=== PATIENT | male | born 1970 | race Caucasian/White ===

== ENCOUNTER 2017-07-08 16:39 | Emergency (ER) | payer OTHER ==
[~2017-07-08] VITALS: Ht 182.9 cm; Wt 121.0 kg
[2017-07-08 17:28] LABS: HEMATOCRIT 45.6 % (38.0-50.0); HEMOGLOBIN 16.4 G/DL (12.5-16.6); MCH 28.9 PG (29.0-34.0); MCV 80.3 FL (86-99); RBC DIS.WIDTH-CV 13.1 % (11.8-14.6); RBC DIS.WIDTH-SD 37.4 % (39-53); RED BLOOD COUNT 5.68 M/uL (4.00-5.50); WHITE BLOOD COUNT 11.5 K/uL (4.1-10.2)
[2017-07-08 17:37] LABS: ALBUMIN 4.4 g/dL (3.2-4.8); CHLORIDE 103 mEq/L (99-109); SODIUM 137 mEq/L (136-147)
[2017-07-08 17:40] LABS: D-DIMER ELISA < 150.00 ng/mLDDU (<230); GLUCOSE 126 mg/dL (70-99); TOTAL PROTEIN 7.7 g/dL (6.4-8.3)
[2017-07-08 17:42] LABS: TOTAL BILIRUBIN 1.2 mg/dL (0.0-1.0)
[2017-07-08 17:43] LABS: ALKALINE PHOSPHATASE 67 IU/L (3-129)
[2017-07-08 17:44] LABS: CREATININE 0.8 mg/dL (0.6-1.3); GFR ESTIMATE (CALCULATED) > 59 mL/min/ (58.99-99999)
[2017-07-08 17:45] LABS: AST (GOT) 23 IU/L (2-34); UREA NITROGEN (BUN) 15 mg/dL (9-23)
[2017-07-08 17:47] LABS: ALT (GPT) 40 IU/L (3-49)
[2017-07-08 17:49] LABS: TROP-I INTERPRETATION NEGATIVE; TROPONIN-I 0.02 ng/mL (0.0-0.30)
[2017-07-08 18:13] LABS: PLAT.SUFFICIENCY ADEQUATE; PLATELET COUNT 244 K/uL (156-360)
[2017-07-08 18:48] LABS: THYROTROPIN (TSH) 1.8 MIU/L (0.4-5.5)
[2017-07-08 19:51] LABS: APPEARANCE CLEAR ((CLEAR)); BILIRUBIN NEGATIVE; BLOOD NEGATIVE; COLOR YELLOW ((YELLOW)); GLUCOSE (STRIP) NEGATIVE; KETONES NEGATIVE; LEUKOCYTES NEGATIVE; NITRITE NEGATIVE; PROTEIN (STRIP) NEGATIVE; SPECIFIC GRAVITY 1.012 (1.000-1.030); UCUL ADDED? NO; UROBILINOGEN 0.2 MG/DL (0.2-1.0)
[2017-07-08 21:40] LABS: CHLORIDE 108 mEq/L (99-109); SODIUM 142 mEq/L (136-147)
[2017-07-08 21:41] LABS: POTASSIUM 4.5 mEq/L (3.7-5.4)
[2017-07-08 21:42] LABS: GLUCOSE 110 mg/dL (70-99)
[2017-07-08 21:46] LABS: CREATININE 0.7 mg/dL (0.6-1.3); GFR ESTIMATE (CALCULATED) > 59 mL/min/ (58.99-99999); UREA NITROGEN (BUN) 12 mg/dL (9-23)
[2017-07-08 22:22] VITALS: BP 141/70
== END 2017-07-08 22:23 | disposition home or self-care (01) ==
LOC: EME 16:39
PROVIDERS: Emergency Medicine
DX: E87.6 Hypokalemia (principal); R53.1 Weakness; R91.8 Other nonspecific abnormal finding of lung field; I10 Essential (primary) hypertension
CPT/HCPCS: 70450; 71046; 80048 91; 80053; 81003; 82948; 83735; 84443; 84484; 85027; 85379; 93005; 99281; 99285; J3480; J7120

== ENCOUNTER 2017-07-12 13:08 | Emergency (ER) | payer OTHER ==
[~2017-07-12] VITALS: Ht 182.9 cm; Wt 118.8 kg
[2017-07-12 15:11] LABS: HEMOGLOBIN 17.6 G/DL (12.5-16.6); MCHC 35.9 G/DL (30.0-36.0); MCV 80.9 FL (86-99); PLATELET COUNT 237 K/uL (156-360); RBC DIS.WIDTH-CV 13.1 % (11.8-14.6); RBC DIS.WIDTH-SD 37.9 % (39-53); RED BLOOD COUNT 6.06 M/uL (4.00-5.50); WHITE BLOOD COUNT 9.7 K/uL (4.1-10.2)
[2017-07-12 15:12] LABS: BASOPHIL (%) 0.4 % (0-1); EOSINOPHIL (%) 0.1 % (0-5); HEMATOCRIT 49.3 % (38.0-50.0); HEMOGLOBIN 17.6 G/DL (12.5-16.6); IMMATURE GRANULOCYTE (%) 0.4 % (0.0-0.7); LYMPHOCYTE (%) 11.6 % (15-42); LYMPHOCYTE COUNT 1.1 K/uL (1.0-2.8); MCH 28.7 PG (29.0-34.0); MCHC 35.7 G/DL (30.0-36.0); MCV 80.4 FL (86-99); MONOCYTE (%) 6.7 % (3-12); MONOCYTE COUNT 0.6 K/uL (0-0.8); NEUTROPHIL (%) 80.8 % (45-76); NEUTROPHIL COUNT 7.6 K/uL (1.8-6.4); PLATELET COUNT 248 K/uL (156-360); RBC DIS.WIDTH-SD 37.4 % (39-53); RED BLOOD COUNT 6.13 M/uL (4.00-5.50); WHITE BLOOD COUNT 9.4 K/uL (4.1-10.2)
[2017-07-12 15:30] LABS: CHLORIDE 107 mEq/L (99-109); POTASSIUM 3.7 mEq/L (3.7-5.4); SODIUM 140 mEq/L (136-147)
[2017-07-12 15:31] LABS: ALBUMIN 4.7 g/dL (3.2-4.8); CHLORIDE 108 mEq/L (99-109); POTASSIUM 3.6 mEq/L (3.7-5.4)
[2017-07-12 15:32] LABS: GLUCOSE 115 mg/dL (70-99); SODIUM 140 mEq/L (136-147)
[2017-07-12 15:34] LABS: GLUCOSE 118 mg/dL (70-99); TOTAL PROTEIN 8.1 g/dL (6.4-8.3)
[2017-07-12 15:36] LABS: CREATININE 0.7 mg/dL (0.6-1.3); GFR ESTIMATE (CALCULATED) > 59 mL/min/ (58.99-99999)
[2017-07-12 15:37] LABS: ALKALINE PHOSPHATASE 73 IU/L (3-129); UREA NITROGEN (BUN) 16 mg/dL (9-23)
[2017-07-12 15:38] LABS: CREATININE 0.7 mg/dL (0.6-1.3); GFR ESTIMATE (CALCULATED) > 59 mL/min/ (58.99-99999)
[2017-07-12 15:39] LABS: AST (GOT) 29 IU/L (2-34); UREA NITROGEN (BUN) 16 mg/dL (9-23)
[2017-07-12 15:40] LABS: ALT (GPT) 50 IU/L (3-49); TOTAL BILIRUBIN 1.7 mg/dL (0.0-1.0)
[2017-07-12 19:20] LABS: APPEARANCE CLEAR ((CLEAR)); BILIRUBIN NEGATIVE; BLOOD NEGATIVE; COLOR YELLOW ((YELLOW)); GLUCOSE (STRIP) NEGATIVE; KETONES NEGATIVE; LEUKOCYTES NEGATIVE; NITRITE NEGATIVE; PROTEIN (STRIP) NEGATIVE; SPECIFIC GRAVITY 1.023 (1.000-1.030); UCUL ADDED? NO; UROBILINOGEN 0.2 MG/DL (0.2-1.0)
[2017-07-12 20:53] VITALS: BP 130/94
[2017-07-13] MEDS ORDERED: ATIVAN1 MG PO (07:54)
== END 2017-07-12 20:54 | disposition home or self-care (01) ==
LOC: EME 13:08
PROVIDERS: Emergency Medicine; Nurse Practitioner Family
DX: G62.9 Polyneuropathy, unspecified (principal); I10 Essential (primary) hypertension
CPT/HCPCS: 74177; 80048; 80053; 81003; 85025; 85027; 93005; 99281; 99285

== ENCOUNTER 2017-07-13 04:15 | Emergency (ER) | payer OTHER ==
[~2017-07-13] VITALS: Ht 182.9 cm; Wt 95.7 kg
[2017-07-13] MEDS ORDERED: ATIVAN1 MG PO (07:54)
[2017-07-13 08:50] VITALS: BP 162/99
== END 2017-07-13 08:50 | disposition home or self-care (01) ==
LOC: EME → EDBD 04:15 → EME 04:15
DX: R07.9 Chest pain, unspecified (principal); R20.0 Anesthesia of skin; R13.10 Dysphagia, unspecified; R27.8 Other lack of coordination; I10 Essential (primary) hypertension
CPT/HCPCS: 70551; 93005; 99281; 99284